=== PATIENT | female | born 1975 | race Caucasian/White ===

== ENCOUNTER 2021-02-07 04:08 | Emergency (ER) | payer BC, OTHER ==
[2021-02-07 04:22] VITALS: BP 165/92; PULSE 95
[2021-02-07] MEDS ORDERED: Ibuprofen 200 MG Tab PO ONE (04:46)
--- NOTE | 2021-02-07 05:31 | EDM.PDOC ---
ED HPI GENERAL MEDICAL PROBLEM - General Chief Complaint: Lower Extremity Injury/Pain Stated Complaint: Right ankle pain Time Seen by Provider: 02/07/21 04:40 Source of Information: Reports: Patient History Limitations: Reports: No Limitations - History of Present Illness INITIAL COMMENTS - FREE TEXT/NARRATIVE: Right ankle injury after slipping on ice. Right Ankle Pain Score (Numeric/FACES): 6 - Related Data Allergies Allergy/AdvReac Type Severity Reaction Status Date / Time No Known Allergies Allergy Verified 02/07/21 04:10 Home Meds: Home Meds Insulin Aspart [NovoLOG] 20 unit SUBCUT WITHMEALSANDBED 02/07/21 [History] Insulin Degludec [Tresiba] 28 unit SQ DAILY 02/07/21 [History] Past Medical History HEENT History: Reports: Impaired Vision Musculoskeletal History: Reports: Fracture Neurological History: Reports: Neuropathy, Diabetic Endocrine/Metabolic History: Reports: Diabetes, Type I - Infectious Disease History Infectious Disease History: Reports: Chicken Pox - Past Surgical History HEENT Surgical History: Reports: Oral Surgery Social & Family History - Tobacco Use Tobacco Use Status *Q: Never Tobacco User - Caffeine Use Caffeine Use: Reports: None - Recreational Drug Use Recreational Drug Use: No Review of Systems - Review of Systems Review Of Systems: See Below Eyes: Reports: No Symptoms Ears: Reports: No Symptoms Nose: Reports: No Symptoms Mouth/Throat: Reports: No Symptoms Respiratory: Reports: No Symptoms Cardiovascular: Reports: No Symptoms GI/Abdominal: Reports: No Symptoms Genitourinary: Reports: No Symptoms Musculoskeletal: Reports: Other (right ankle pain) Skin: Reports: No Symptoms Neurological: Reports: No Symptoms Psychiatric: Reports: No Symptoms ED EXAM, GENERAL - Physical Exam Exam: See Below Exam Limited By: No Limitations General Appearance: Alert, WD/WN, No Apparent Distress Eye Exam: Bilateral Eye: EOMI, PERRL Ears: Hearing Grossly Normal Nose: No: Nasal Deformity Throat/Mouth: Normal Lips, Normal Voice, No Airway Compromise Head: Atraumatic, Normocephalic Neck: Supple Respiratory/Chest: No Respiratory Distress Cardiovascular: Normal Peripheral Pulses Extremities: Normal Capillary Refill, Limited Range of Motion (right ankle), Other (No deformity or swelling. Tender medial and lateral maleolus on right). No: Increased Warmth, Mottled, Pallor, Redness Neurological: Alert, Oriented, Normal Cognition Psychiatric: Normal Affect, Normal Mood Skin Exam: Warm, Dry, Intact, Normal Color ED TRAUMA EXTREMITY PROCEDURES - Splinting Right Lower Extremity Splint Site: right ankle Pre-Procedure NV Status: Normal Post-Procedure NV Status: Normal Splint Material: Fiberglass Splint Design: Stirrup Applied & Form Fitted By: Provider Provider Post-Splint Application NV Check: NV Status Normal, Good Position Complications: No Course - Vital Signs Last Recorded V/S: Last Vital Signs Temp 36.6 C 02/07/21 04:21 Pulse 95 02/07/21 04:21 Resp 17 02/07/21 04:21 BP 165/92 H 02/07/21 04:21 Pulse Ox 99 02/07/21 04:21 - Orders/Labs/Meds Orders: Active Orders 24 hr Category Date Time Status Ankle Min 3V Rt [CR] Stat Exams 02/07/21 04:31 Taken - Re-Assessments/Exams Free Text/Narrative Re-Assessment/Exam: 02/07/21 05:38 Xray of foot shows fibular fracture and probable tibial fracture. Radiology review pending. She does have history of previous ankle fracture involving same ankle. Fiberglass splint fitted to right ankle for protection and support. Crutches given. Pt declined narcotic pain medication. Received Ibuprofen. Aftercare and precautions reviewed. To follow up at Ortho walk in clinic tomorrow or Thursday. Departure - Departure Time of Disposition: 05:29 Disposition: Home, Self-Care 01 Condition: Good Clinical Impression: Tibia/fibula fracture Qualifiers: Encounter type: initial encounter Fracture type: closed Laterality: right Qualified Code(s): S82.201A - Unspecified fracture of shaft of right tibia, initial encounter for closed fracture - Discharge Information *PRESCRIPTION DRUG MONITORING PROGRAM REVIEWED*: Not Applicable *COPY OF PRESCRIPTION DRUG MONITORING REPORT IN PATIENT KIMBERLY: Not Applicable Instructions: Crutch Use, Adult, [id number], Tibial and Fibular Fractures Referrals: Jennifer Brown DO [Primary Care Provider] - Forms: ED Department Discharge Additional Instructions: Avoid weight bearing. Follow up ortho walk in clinic at [facility] on Thursday or Thursday as discussed. Ibuprofen/Tylenol as needed for pain. Sepsis Event Note (ED) - Evaluation Sepsis Screening Result: No Definite Risk - Focused Exam Vital Signs: Vital Signs Temp Pulse Resp BP Pulse Ox 02/07/21 04:21 36.6 C 95 17 165/92 H 99 - My Orders Last 24 Hours: My Active Orders 02/07/21 04:31 Ankle Min 3V Rt [CR] Stat - Assessment/Plan Last 24 Hours: My Active Orders 02/07/21 04:31 Ankle Min 3V Rt [CR] Stat
== END 2021-02-07 05:40 | disposition home or self-care (01) ==
LOC: LL.ED 04:08
DX: S82.831A Other fracture of upper and lower end of right fibula, initial encounter for closed fracture (principal); E10.40 Type 1 diabetes mellitus with diabetic neuropathy, unspecified; W00.0XXA Fall on same level due to ice and snow, initial encounter
CPT/HCPCS: 29515; 73610; 99283; A9270